=== PATIENT | female | born 1995 | race Caucasian/White ===

== ENCOUNTER 2017-09-05 17:41 | Emergency (ER) | payer OTHER ==
[~2017-09-05] VITALS: Ht 160 cm; Wt 75.0 kg
[2017-09-05] MEDS ORDERED: ACETAMINOPHEN 325 MG TABLET PO ONE (19:30)
[2017-09-05 20:19] VITALS: BP 120/52
== END 2017-09-05 20:52 | disposition home or self-care (01) ==
LOC: EMS 17:41
DX: R59.1 Generalized enlarged lymph nodes (principal)
CPT/HCPCS: 87430; 99283

== ENCOUNTER 2022-07-27 17:03 | Emergency (ER) | payer OTHER ==
[~2022-07-27] VITALS: Ht 162.6 cm; Wt 98.2 kg
[2022-07-27] MEDS ORDERED: HYDROCODONE/ACETAMINOPHEN 5-325 MG TABLET PO ONE (17:30)
[2022-07-27] MEDS ORDERED: SULFAMETHOX/TRIMETH DS 800-160 MG/TABLET PO ONE (17:30)
[2022-07-27] MEDS ORDERED: CEPHALEXIN MONOHYDRATE 500 MG CAPSULE PO ONE (17:30)
[2022-07-27] MEDS ORDERED: LIDOCAINE 1% 10 ML VIAL ID ONE (17:30)
[2022-07-27 17:54] VITALS: BP 138/72
[2022-07-27] MEDS ORDERED: IBUP-1492 PO (17:55)
[2022-07-27] MEDS ORDERED: CEPH-558 PO (17:55)
[2022-07-27] MEDS ORDERED: SULF-261 PO (17:55)
== END 2022-07-27 18:00 | disposition home or self-care (01) ==
LOC: EMS 17:13
DX: L02.213 Cutaneous abscess of chest wall (principal)
CPT/HCPCS: 99284; 10060; J3490

== ENCOUNTER 2022-07-29 05:49 | Emergency (ER) | payer OTHER ==
[~2022-07-29] VITALS: Ht 162.6 cm; Wt 98.0 kg
[~2022-07-29 05:49] MED LIST: CEPH-558 PO; IBUP-1492 PO; SULF-261 PO
[2022-07-29 05:54] VITALS: BP 132/84
== END 2022-07-29 06:45 | disposition home or self-care (01) ==
LOC: EMS 05:52
DX: L02.213 Cutaneous abscess of chest wall (principal)
CPT/HCPCS: 99281; Z7502